=== PATIENT | male | born 1995 | race Caucasian/White ===

== ENCOUNTER 2020-11-22 11:43 | Emergency (ER) | payer BC, OTHER, SELFPAY ==
--- NOTE | ~2020-11-22 | XR_ITS ---
EXAMINATION: XR FINGER, LEFT CLINICAL INFORMATION: Pain COMPARISON: None TECHNIQUE: Three views of the left fifth finger. FINDINGS: The bones and soft tissues are normal. No fracture. Alignment is anatomic. Joint spaces are maintained. XR/XR finger LT min 2V IMPRESSION: Normal finger radiographs.
[2020-11-22 12:14] VITALS: BP 112/65; PULSE 86; RESP 18; TEMP 36.8; O2SAT 99; BMI 42.7
[2020-11-22] MEDS: Diphth,Pertus(ACell),Tet Adult 0.5 ML SYRINGE IM (14:40)
[2020-11-22] MEDS: Lidocaine HCl 1 % MPF 5 ML VIAL SUBCUT (14:41)
--- NOTE | 2020-11-22 15:44 | ED_ITS ---
HPI - Extremity Problem General Chief complaint: Extremity Injury, Upper Stated complaint: lt hand finger injury Time Seen by Provider: 11/22/20 12:48 Source: patient Mode of arrival: ambulatory History of Present Illness HPI Narrative: 25-year-old male with a past medical history of asthma presenting to the ED complaining of left 5th digit pain, swelling, and laceration s/p tire falling on finger got caught in scissor josr around 5:00 p.m. last night. admits to associated tingling at the tip of finger. Tetanus out of date. Denies injury to other area. Denies weakness, numbness, fever Related Data Allergies Allergy/AdvReac Type Severity Reaction Status Date / Time No Known Allergies Allergy Verified 11/22/20 12:14 Review of Systems Review of Systems: Constitutional: No Fever, No Chills Musculoskeletal: + joint pain, No Myalgias, + Joint Swelling Skin: + Skin Lesions, No rash Neuro: No Weakness, No Numbness, + Paresthesias Yes all other systems are reviewed and are negative PMFSH Past Medical History Attestation statement: The following information was validated with the patient. Medical History (Updated 11/22/20 @ 15:48 by MEL Rocha) Asthma Social History Social History Patient Tobacco Use Status: Never used Tobacco Use of substances other than those prescribed or required for medical reasons: No Advance Directives: No Advance Directives Information Provided: No Physical Exam Vital Signs: Vital Signs: Last Vital Signs Temp 98.2 F 11/22/20 12:14 Pulse 86 11/22/20 12:14 Resp 18 11/22/20 12:14 BP 112/65 11/22/20 12:14 Pulse Ox 99 11/22/20 12:14 Body Mass Index 42.7 Const: General: cooperative and healthy appearing Orientation/consciousness: patient oriented x3 Limitations: no limitations HENMT: Head: Yes normal to inspection Ears: hearing grossly normal bilaterally General nose exam: Normal external nose present Face and sinus: Yes normal facial exam Eyes: General: appearance normal, both eyes and all related structures EOM: EOMs intact bilaterally Neck: Neck: Yes normal visual inspection Resp: Effort & Inspection: normal respiratory effort Auscultation: clear to auscultation bilaterally Cardio: Rate: regular rate Heart sounds: S1 normal heart sound present and S2 normal heart sound present Skin: Other: + 1 cm linear laceration noted to left distal 5th digit palmar aspect + subungual hematoma to left 5th digit Rashes: no rashes Neuro: General: patient oriented x3 Gait exam (Neuro): Normal gait present Extrem: Other: FROM intact to L hand and digitis. finger to thumb opposition intact. NV intact Course Course Course Narrative: x-rays unremarkable Procedures Procedure Narrative Procedure Narrative: Trephination to left 5th digit due to subungual hematoma Laceration Laceration 1: Site: hand (5th digit) Side (If applicable): left Size (cm): 1 Description: linear Depth: simple, single layer Local Anesthetic: other anesthetic ( digital block) Amount of anesthesia used (mL): 3.5 Skin layer closed with: nylon Size (cm): 4-0 Number of sutures: 2 Technique: simple, interrupted MDM - Extremity (Nontraumatic) MDM Narrative Medical decision making narrative: 25-year-old male with a past medical history of asthma presenting to the ED complaining of left 5th digit pain, swelling, and laceration s/p tire falling on finger got caught in scissor josr around 5:00 p.m. last night. on exam vital stable, physical exam as above. Will obtain x- rays to rule out fracture. Plan: X-rays, suture wound, drains subungual hematoma Discharge Plan Discharge Clinical Impression: Laceration, Subungual hematoma Patient Disposition: Home, Self-Care Instructions: Subungual Hematoma (ED), Finger Laceration (ED) Additional Instructions: you need to return to any emergency department or urgent care in 7-10 days to have your stitches taken out Keep area dry and clean, do not scrub, only pat dry if area begins to look infected, is red, there is pus drainage, or you fever please return to the ED Otherwise follow-up with her doctor It is normal for the hole in her nail to drain for the next 24-48 hours is now it is open allowing for drainage, however if this continues to drain please return to the ED sooner Referrals: Xavi Stone MD [Emergency Provider] - 1 week ( return to any emergency department or urgent care in 7-10 days to have her stitches taken out) Stand Alone Forms: Work/School Release Interventions: ED Discharge Assessment Last Done: 11/22/20 16:06 Discharge Date/Time: 11/22/20 16:07
== END 2020-11-22 16:07 | disposition home or self-care (01) ==
PROVIDERS: Emergency Provider Emergency Medicine Emergency Medical Services
DX: S61.217A Laceration without foreign body of left little finger without damage to nail, initial encounter (principal); S60.152A Contusion of left little finger with damage to nail, initial encounter; J45.909 Unspecified asthma, uncomplicated; W26.8XXA Contact with other sharp object(s), not elsewhere classified, initial encounter; Y93.9 Activity, unspecified; Y92.9 Unspecified place or not applicable; Y99.9 Unspecified external cause status
CPT/HCPCS: 12001; 73140; 90471; 90715; 99284